=== PATIENT | male | born 1975 | race American Indian/Alaskan Native ===

== ENCOUNTER 2018-12-30 19:34 | Emergency (ER) | payer SELFPAY ==
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
[2018-12-30] MEDS ORDERED: IBUPROFEN PO ONE (20:17)
[2018-12-30] MEDS ORDERED: XYLOCAINE 1% MPF 5 mL INFILTRATI ONE (20:17)
[2018-12-30] MEDS ORDERED: NACL 0.9% 500 ML IR ONE (21:13)
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
[2018-12-31 00:17] VITALS: BP 136/93
== END 2018-12-31 00:19 | disposition home or self-care (01) ==
LOC: ED 19:34
DX: S01.81XA Laceration without foreign body of other part of head, initial encounter (principal); F31.9 Bipolar disorder, unspecified; F17.200 Nicotine dependence, unspecified, uncomplicated; F12.10 Cannabis abuse, uncomplicated; Z79.1 Long term (current) use of non-steroidal anti-inflammatories (NSAID); X99.1XXA Assault by knife, initial encounter; Y93.89 Activity, other specified; Y92.488 Other paved roadways as the place of occurrence of the external cause; Y99.8 Other external cause status
CPT/HCPCS: 70486

== ENCOUNTER 2019-01-13 11:37 | Emergency (ER) | payer SELFPAY ==
[2019-01-13 11:45] VITALS: BP 136/90
--- NOTE | 2019-01-13 11:51 | Emergency Department Report ---
ED Recheck HPI - General Chief Complaint: Laceration/Recheck/Suture Stated Complaint: SUTURE REMOVAL Time Seen by Provider: 01/13/19 11:43 Source: patient Mode of arrival: Ambulatory Limitations: No Limitations - History of Present Illness Initial Comments: here for suture removal stitches under left eye placed 2 w ago healing well x for overgrowth of tissue taking antibiotics Complaint: suture/staple removal - Related Data Previous Rx's Medication Instructions Recorded Last Taken Type Ibuprofen [Motrin] 600 mg PO Q8H PRN #20 tablet 12/31/18 Unknown Rx Sulfamethoxazole/Trimethoprim 1 each PO BID #20 tablet 12/31/18 Unknown Rx [Bactrim DS TAB] Allergies Allergy/AdvReac Type Severity Reaction Status Date / Time No Known Allergies Allergy Unverified 12/30/18 20:02 ED Review of Systems ROS: Stated complaint: SUTURE REMOVAL Other details as noted in HPI Comment: All other systems reviewed and negative ED Past Medical Hx - Past Medical History Previous Medical History?: Yes Hx Psychiatric Treatment: Yes (Depression, BIPOLAR) - Surgical History Past Surgical History?: No - Social History Smoking Status: Current Every Day Smoker Substance Use Type: None - Medications Home Medications: Home Medications Medication Instructions Recorded Confirmed Last Taken Type Ibuprofen [Motrin] 600 mg PO Q8H PRN #20 tablet 12/31/18 Unknown Rx Sulfamethoxazole/Trimethoprim 1 each PO BID #20 tablet 12/31/18 Unknown Rx [Bactrim DS TAB] ED Physical Exam - General Limitations: No Limitations General appearance: alert - Neck Neck exam: Present: normal inspection - GI/Abdominal GI/Abdominal exam: Present: soft - Rectal Rectal exam: Present: deferred - Extremities Exam Extremities exam: Present: normal inspection - Back Exam Back exam: Present: normal inspection - Neurological Exam Neurological exam: Present: alert, oriented X3, CN II-XII intact, normal gait - Psychiatric Psychiatric exam: Present: normal affect, normal mood - Skin Skin exam: Present: ecchymosis ED Course Vital Signs 01/13/19 11:43 Temperature 97.8 F Pulse Rate 96 H Respiratory 16 Rate Blood Pressure 136/90 O2 Sat by Pulse 99 Oximetry ED Recheck MDM - Core Measures Measure Exclusions: not indicated - Differential Diagnosis Suture/Staple Removal - Medical Decision Making simple suture removal lac healing well sutures removed without difficulty instructions on wound care provided dc home Critical care attestation.: If time is entered above; I have spent that time in minutes in the direct care of this critically ill patient, excluding procedure time. ED Disposition Clinical Impression: Visit for suture removal Disposition: TO HOME OR SELFCARE Is pt being admited?: No Does the pt Need Aspirin: No Condition: Stable Instructions: Suture Removal (ED) Additional Instructions: STRIVECTIN OVER THE COUNTER SCAR MINIMIZER CLEAN WITH SOAP AND WATER NO NEOSPORIN Referrals: [facility] [Outside] - 3-5 Days Time of Disposition: 11:54
== END 2019-01-13 12:17 | disposition home or self-care (01) ==
LOC: ED 11:37
DX: T14.8XXD Other injury of unspecified body region, subsequent encounter (principal); Z48.02 Encounter for removal of sutures